=== PATIENT | female | born 1970 | race Caucasian/White ===

== ENCOUNTER 2020-05-24 06:39 | Day surgery (SDC) | payer OTHER ==
[~2020-05-24] VITALS: Ht 162.6 cm; Wt 140.0 kg
[2020-05-24 06:53] LABS: BASOPHILS 0.3 % (0-2); EOSINOPHILS 2.4 % (0-7); HEMATOCRIT 41.6 % (36.0-48.0); HEMOGLOBIN 13.5 g/dL (12-16); IMMATURE GRANULOCYTES 0.8 % (0-5); LYMPHOCYTES 36.9 % (15-50); MCH 28.2 pg (26.0-34.0); MCHC 32.5 g/dL (31.0-37.0); MEAN PLATELET VOLUME 8.9 fL (7.4-10.4); MONOCYTES 6.2 % (2-11); NEUTROPHILS 53.4 % (40-80); PLATELET COUNT 194 10x3/uL (130-400); RBC 4.78 10x6/uL (4.00-5.40); RDW 13.9 % (11.5-14.5); WBC 9.1 10x3/uL (4.8-10.8)
[2020-05-24 07:01] LABS: APTT 28.8 SECONDS (22.8-39.4); CALC OSMOLALITY 283 mosm/kg (275-300); CALCIUM 8.6 mg/dL (8.5-10.1); CARBON DIOXIDE 23.3 mmol/L (21.0-32.0); CHLORIDE - SERUM 105 mmol/L (98-107); CREATININE - SERUM 0.8 mg/dL (0.6-1.3); GLUCOSE 162 mg/dL (74-106); INR 0.93 (0.85-1.17); POTASSIUM - SERUM 3.8 mmol/L (3.5-5.1); PROTIME 12.4 SECONDS (11.6-15.0); SODIUM 140 mmol/L (136-145); UREA NITROGEN 15 mg/dL (7-18); eGFR NON AFRICAN AMERICAN 80 mL/min (90-120)
[2020-05-24] MEDS ORDERED: [UNRECOGNIZED DRUG - OTHER] (07:20)
[2020-05-24] MEDS ORDERED: ACETAZOLAMIDE250 MG PO (07:20)
[2020-05-24] MEDS ORDERED: ESTRACE2 MG (07:21)
[2020-05-24] MEDS ORDERED: PLAVIX75 MG PO (07:21)
[2020-05-24] MEDS ORDERED: HYDRALAZINE HC100 MG PO (07:22)
[2020-05-24] MEDS ORDERED: CYMBALTA60 MG PO (07:22)
[2020-05-24] MEDS ORDERED: FUROSEMIDE40 MG PO (07:22)
[2020-05-24] MEDS ORDERED: METOPROLOL TART50 MG PO (07:23)
[2020-05-24] MEDS ORDERED: LAMICTAL100 MG PO (07:23)
[2020-05-24] MEDS ORDERED: OMEPRAZOLE40 MG PO (07:24)
[2020-05-24] MEDS ORDERED: ZANAFLEX4 MG PO (07:24)
[2020-05-24] MEDS ORDERED: PRAVACHOL40 MG PO (07:24)
[2020-05-24] MEDS ORDERED: VITAMIN D50000 UNI2 PO (07:25)
[2020-05-24] MEDS ORDERED: NORVASC10 MG PO (07:26)
[2020-05-24 07:41] VITALS: BP 135/71; Ht 162.6 cm; Wt 140.0 kg
--- NOTE | 2020-05-24 07:54 | NUR ---
According to the suicide assessment the patient rates low and she does not require a 1:1 observation. Will provide a suicide resourse flyer.
--- NOTE | 2020-05-24 09:47 | NUR ---
0940 IV DC'D. CATHETER TIP INTACT. NO BLEEDING AT SITE. BANDAID APPLIED. REVIEWED DISCHARGE INSTRUCTIONS WITH PT AND HER SON. PT AWARE THAT SHE CAN RESUME PLAVIX IN 48 HOURS.
--- NOTE | 2020-05-25 08:39 | OP ---
PATIENT NAME: RUTH BECK MEDICAL RECORD: [id number] :68 [facility] DATE: SURGEON: KATHLEEN MICHEL DO DATE OF OPERATION: 05/24/2020 PROCEDURE: Colonoscopy with polypectomy. INDICATIONS FOR PROCEDURE: Nausea, history of colon polyps, change in bowel habits, right lower quadrant abdominal pain. SCOPE: Olympus video pediatric colonoscope. MEDICATIONS: Propofol 700 mg IV per anesthesia. WITHDRAWAL TIME: 12 minutes. ESTIMATED BLOOD LOSS: Minimal. COMPLICATIONS: None. FINDINGS AND DESCRIPTION OF PROCEDURE: Informed consent was given. The patient was made comfortable with the above medication. After reaching an adequate level of sedation by slow IV push, the patient was placed on her left side. A digital rectal examination was performed and was normal. The endoscope was advanced under direct visualization through the rectum to the cecum, confirmed by the presence of the appendiceal orifice and ileocecal valve. The endoscope was slowly withdrawn and mucosa was carefully examined. The prep quality was fair. There were 3 polyps visualized on today's examination. The first was located in the sigmoid colon. It was a benign-appearing sessile polyp, which measured close to 1 cm in size. It was removed using a hot snare. A second polyp was located in the ascending colon. It was a benign-appearing flat polyp, which measured approximately 7-mm in diameter. It was removed using a hot snare. The third polyp was located in the cecum. It was a benign-appearing mixed polyp, which measured approximately 4-mm in diameter. It was removed using hot forceps. There was evidence of very mild diverticulosis involving the sigmoid colon. Retroflexion was performed in the rectum with visualization of grade I internal hemorrhoids without bleeding. The endoscope was withdrawn from the patient. The patient tolerated the procedure well and there were no complications. IMPRESSION: 1. Three polyps as described above, removed using a combination of hot forceps and a hot snare. 2. Mild diverticulosis of the sigmoid colon. 3. Grade I internal hemorrhoids without bleeding. PLAN AND RECOMMENDATIONS: 1. Discharge home when recovery parameters are met. 2. Follow up biopsy specimen results. 3. High fiber diet. 4. Continue current medications. 5. Recall colonoscopy in 3 years. TRANSINT:[id number] Voice Confirmation ID: [id number] DOCUMENT ID: [id number] OPERATIVE REPORT [id number] RUTH BECKKATHLEEN BARDALES DO at 0839 CC: [id number] DICTATION DATE: 05/24/20902 COMPUTER OPERATIONS ANALYST: 05/24/20 1255 [facility] 05/24/20 [id number] [place] [address]
== END 2020-05-24 09:49 | disposition home or self-care (01) ==
LOC: D.OPS 06:39
PROVIDERS: Anesthesiology; ATTEND Internal Medicine Gastroenterology
DX: R11.0 Nausea (principal); Z86.010 Personal history of colon polyps; R19.4 Change in bowel habit; R10.31 Right lower quadrant pain; K76.0 Fatty (change of) liver, not elsewhere classified